=== PATIENT | male | born 1970 | race African-American/Black ===

== ENCOUNTER 2017-01-11 01:11 | Emergency (ER) | payer OTHER ==
[~2017-01-11] VITALS: Ht 185.4 cm; Wt 86.2 kg
[2017-01-11] MEDS ORDERED: NORCO 5-325 TA1 EACH PO (02:23)
[2017-01-11 02:32] VITALS: BP 106/65
== END 2017-01-11 02:33 | disposition home or self-care (01) ==
LOC: ER 01:11
DX: L98.9 Disorder of the skin and subcutaneous tissue, unspecified (principal); I10 Essential (primary) hypertension; F17.210 Nicotine dependence, cigarettes, uncomplicated; F12.10 Cannabis abuse, uncomplicated